=== PATIENT | male | born 1985 | race Caucasian/White ===

== ENCOUNTER 2019-03-03 16:47 | Emergency (ER) | payer OTHER ==
[~2019-03-03] VITALS: Ht 188 cm; Wt 106.8 kg
--- NOTE | 2019-03-03 18:09 | REPVR ---
PROCEDURE INFORMATION: Exam: US Scrotum Exam date and time: 03/03/2019 5:46 PM Clinical history: 33 years old, male; Scrotum pain; Additional info: L testicular pain TECHNIQUE: Imaging protocol: Real-time ultrasound of the scrotum and contents with color Doppler and image documentation. COMPARISON: No relevant prior studies available. FINDINGS: Right testicle: Right testicle measures 4.3 x 2.3 x 3.5 cm. Positive blood flow. No mass. Left testicle: Left testicle measures 4.7 x 2.8 x 3.7 cm. Positive blood flow. No mass. Epididymides: 3 mm right epididymal cyst. Two 3 mm left epididymal cysts. Scrotum: Small right-sided varicocele. Small left sided varicocele. IMPRESSION: Small bilateral varicoceles. Electronically signed by: Kirti Bang On 03/03/2019 18:09:46 PM
[2019-03-03 19:06] VITALS: BP 142/87
--- NOTE | 2019-03-05 14:21 | ED PDOC ---
Post-Departure Follow-Up ft julian fp faxed formal report of scrotal us for fu Shannon Rosado MD Mar 05, 2019 14:21
== END 2019-03-03 19:24 | disposition home or self-care (01) ==
LOC: M ED 16:47
DX: N44.2 Benign cyst of testis (principal)

== ENCOUNTER 2019-09-14 09:29 | Observation (INO) | payer OTHER ==
[~2019-09-14] VITALS: Ht 188 cm; Wt 113.6 kg
[2019-09-14] MEDS ORDERED: CYCLOBENZAPRINE 10MG TABLET PO ONE (10:00)
[2019-09-14] MEDS ORDERED: KETOROLAC 30 MG/ML 1ML VIAL IV ONE (10:00)
--- NOTE | 2019-09-14 10:44 | REP ---
LUMBOSACRAL SPINE SERIES: Five views of lumbosacral spine are performed. No fracture or dislocation is seen. There is no spondylolysis or spondylolisthesis. There is mild disc space narrowing at L3-4 and slight narrowing at L4-5 disc space. There is sclerosis and spurring at the facets of L5-S1. The posterior elements are intact. IMPRESSION: Mild degenerative changes with no fracture or dislocation. Electronically Signed by Taco Gray MD 09/14/2019 11:17 A
[2019-09-14] MEDS ORDERED: PERCOCET 5MG/325MG TAB PO ONE (11:00)
[2019-09-14] MEDS: HYDROMORPHONE HCL 0.5 MG/ 0.5 ML SYRINGE (J1170 PER 1) IV PRN ×2 (13:16→14:53)
--- NOTE | 2019-09-14 14:56 | REPVR ---
PROCEDURE INFORMATION: Exam: MR Lumbar Spine Without Contrast. Exam date and time: 09/14/2019 12:31 PM Age: 33 years old Clinical indication: Low back pain; Additional info: Severe pain TECHNIQUE: Imaging protocol: Multiplanar magnetic resonance images of the lumbar spine without intravenous contrast. COMPARISON: CR Spine. Lumbosacral, complete 09/14/2019 10:01 AM FINDINGS: Vertebrae: The lumbar vertebral bodies are normal in height , signal intensity and alignment.No acute fracture or dislocation is seen. Marrow: There is a normal proportion of hematopoietic bone marrow and fat for this patient's age.There is no evidence of abnormal bone marrow signal intensity to suggest contusion or infection. Spinal epidural space: There is no evidence of epidural masses or hemorrhage. Spinal cord: The conus medullaris is normal. The cauda equina nerve roots demonstrate no crowding or displacement. L1-L2: There is no significant degenerative disc herniation.The spinal canal and neural foramina are patent and without significant stenosis. L2-L3: There is no significant degenerative disc herniation.The spinal canal and neural foramina are patent and without significant stenosis. L3-L4: There is a mild diffuse posterior bulge causing mild effacement of the thecal sac.The facet joints demonstrate mild degenerative hypertrophy and sclerosis.There is no evidence of spinal canal narrowing.There is mild bilateral foraminal stenosis. L4-L5: There is a mild diffuse posterior bulge causing mild effacement of the thecal sac. Small right foraminal protrusion with annular tear.The facet joints demonstrate mild degenerative hypertrophy and sclerosis.There is no evidence of spinal canal narrowing.There is mild bilateral foraminal stenosis. L5-S1: There is a mild diffuse posterior bulge causing mild effacement of the thecal sac. Right paracentral annular tear.The facet joints demonstrate mild degenerative hypertrophy and sclerosis.There is no evidence of spinal canal narrowing.There is no evidence of foraminal stenosis. Soft tissues: The prevertebral soft tissues appear normal. IMPRESSION: MRI of the lumbar spine reveals mild multilevel degenerative spondylitic changes and degenerative disc disease as described above. Electronically signed by: Ric Roe On 09/14/2019 14:56:12 PM
--- NOTE | 2019-09-14 17:41 | HPEPDOC ---
[facility] Medical History & Physical Date of Admission September 14, 2019 Date of Service: September 14, 2019 Attending Physician: PENG REYNOLDS MD History and Physical CHIEF COMPLAINT: Back pain HISTORY OF PRESENT ILLNESS: 33-year-old male with past medical history of disc herniation presents from home with back pain. He was standing in the kitchen yesterday when he suddenly noticed back pain which progressively worsened, unsure how it started, possibly pulled a muscle. Pain was worsening throughout the day, rates it 10 out of 10 upon waking up today. He had difficulty getting up to walk to the bathroom, which is like into the hospital. Pain has been improving throughout the day as he has received muscle relaxers and pain control medications. He ambulated in the ER with a walker but unable to walk without it. He denies any weakness or numbness in his lower extremities, no fecal or urinary incontinence. He has no other associated symptoms. He denies any shortness of breath, chest pain, nausea, vomiting, diarrhea or constipation. 10 point review of system is negative so for above PAST MEDICAL HISTORY: 1. Disc herniation. PAST SURGICAL HISTORY: 1. 3 left knee surgeries. 2. Hernia repair. SOCIAL HISTORY: Denies smoking. Social alcohol use. Denies drug use FAMILY HISTORY: Mother had breast cancer ALLERGIES: Please see below. HOME MEDICATIONS: Please see below. PHYSICAL EXAMINATION: VITAL SIGNS: Please see below. GENERAL: No distress HEENT: Normocephalic, atraumatic, moist mucous membranes NECK: Supple CARDIOVASCULAR EXAMINATION: S1, S2, no murmurs RESPIRATORY EXAMINATION: Clear to auscultation, no wheezing ABDOMINAL EXAMINATION: Soft, nontender, nondistended, positive bowel sounds EXTREMITIES: Range of motion intact SKIN: No rash NEUROLOGICAL EXAMINATION: Alert and oriented 3, no focal deficits PSYCHIATRIC EXAMINATION: Calm and cooperative LABORATORY DATA: See below. IMAGING: MRI of lumbar spine showing degenerative disc disease, no acute pathology MICROBIOLOGY: Please see below. ASSESSMENT: 33-year-old male with no significant past medical history, being admitted for intractable back pain with inability to walk because of. PLAN: 1. Acute back pain. Likely musculoskeletal, MRI without acute pathology, degenerative disc disease noted, PT/OT, pain control, Flexeril as needed. Plan for discharge tomorrow if improving. Vital Signs Vital Signs Date Time Temp Pulse Resp B/P (MAP) Pulse Ox O2 Delivery O2 Flow Rate FiO2 09/14/19 16:21 74 18 94 Room Air 09/14/19 16:20 143/67 (92) 09/14/19 09:39 97.7 Laboratory Data Labs 24H Laboratory Tests 2 09/14/19 10:01: POC Glucose (Misc Panel) 110H, POC Sodium (Misc Panel) 141, POC Potassium (Misc Panel) 4.5, POC Chloride (Misc Panel) 101, POC Total CO2 (Misc Panel) 27.0, POC Blood Urea Nitrogen (Misc Panel 19, POC Ionized Calcium (Misc Panel) 5.0, POC Creatinine (Misc Panel) 1.1, POC Hematocrit (Misc Panel) 49.0 Home Medications No Active Prescriptions or Reported Meds Allergies Coded Allergies: No Known Allergies (Unverified , 03/03/19) A-FIB/CHADSVASC A-FIB History Current/History of A-Fib/PAF?: No PENG REYNOLDS MD September 14, 2019 17:41
[2019-09-14] MEDS: KETOROLAC 30 MG/ML 1ML VIAL IV PRN (18:49)
[2019-09-14] MEDS: PERCOCET 5MG/325MG TAB PO PRN (21:26)
[2019-09-14 22:00] VITALS: BP 130/84
[2019-09-14] MEDS: CYCLOBENZAPRINE 5MG TABLET PO PRN (22:40)
[2019-09-15 06:00] VITALS: BP 127/78
[2019-09-15] MEDS: PERCOCET 5MG/325MG TAB PO PRN ×3 (06:28→16:15)
[2019-09-15 06:29] LABS: HEMATOCRIT 49.5 % (42.0-52.0); MEAN CORPUSCULAR HEMOGLOBIN 30.5 pg (27.0-33.0); MEAN CORPUSCULAR HGB CONC 34.3 g/dl (32.0-36.5); MEAN CORPUSCULAR VOLUME 88.9 fl (80.0-96.0); PLATELET COUNT, AUTOMATED 170 10^3/uL (150-450); RED BLOOD COUNT 5.57 10^6/uL (4.30-6.10); WHITE BLOOD COUNT 6.6 10^3/uL (4.0-10.0)
[2019-09-15] MEDS: KETOROLAC 30 MG/ML 1ML VIAL IV PRN ×2 (06:57→13:43)
[2019-09-15 06:58] LABS: ALBUMIN 3.8 GM/DL (3.2-5.2); ALT/SGPT 61 U/L (12-78); BILIRUBIN,TOTAL 1.2 MG/DL (0.2-1.0); BLOOD UREA NITROGEN 21 MG/DL (7-18); CALCIUM LEVEL 8.7 MG/DL (8.5-10.1); CARBON DIOXIDE LEVEL 30 MEQ/L (21-32); CHLORIDE LEVEL 105 MEQ/L (98-107); CPK CREATINE PHOSPHOKINASE 179 U/L (39-308); CREATININE FOR GFR 1.31 MG/DL (0.70-1.30); GLOMERULAR FILTRATION RATE > 60.0 (>60); GLUCOSE, FASTING 85 MG/DL (70-100); MAGNESIUM LEVEL 2.2 MG/DL (1.8-2.4); POTASSIUM SERUM 4.6 MEQ/L (3.5-5.1); SODIUM LEVEL 141 MEQ/L (136-145); TOTAL PROTEIN 6.9 GM/DL (6.4-8.2)
[2019-09-15] MEDS: CYCLOBENZAPRINE 5MG TABLET PO PRN (09:07)
[2019-09-15 13:47] VITALS: BP 156/58
[2019-09-15] MEDS ORDERED: CYCL5TAB PO (16:41)
[2019-09-15] MEDS ORDERED: PERCOCET PO (16:41)
--- NOTE | 2019-09-15 18:03 | DS.PDOC ---
Discharge Summary General Date of Admission September 14, 2019 at 09:30 Date of Discharge 09/15/19 Attending Physician: PENG REYNOLDS MD Discharge Summary PROCEDURES PERFORMED DURING STAY: [None]. ADMITTING DIAGNOSES: 1. Intractable Back Pain DISCHARGE DIAGNOSES: 1. Acute Lower Back Pain COMPLICATIONS/CHIEF COMPLAINT: Intractable Back [place]. HISTORY OF PRESENT ILLNESS: Patient is a 33 year old male with a past medical history significant for lumbar disc buldge/herniation who presented to [facility] with complaint of acute onset lower back pain. Patient stated that he was standing in his kitchen when he noticed sudden onset lower back pain that progressively worsened. He stated that it had worsened throughout the day and was rated as a 10/10 and sharp and burning. He had difficulty with ambulation and was unable to walk due to the pain. He denies any fecal or urinary incontinence. He denied any weakness of numbness in his lower extremities. The patient was subsequently admitted to [facility] for further evaluation and management HOSPITAL COURSE: Once admitted the patient was treated with muscle relaxers and oral pain medications. He received oral Percocet, IV Toradol, and PO Flexeril for pain. The patient noticed improvement over the second day of his hospitalization. MRI of the lumbar spine was completed which demonstrated mild multilevel degenerative spondylitic changes and degenerative disc disease (report below). Patient continued to worked with physical therapy who found him safe for discharge home. Recommendations were made for discharge with a 4 wheel walker and continued outpatient physical therapy. Patient was subsequently discharged with plans for outpatient physical therapy and follow-up with his PCP. He was given Percocet 10-325 q6hprn for pain and Flexeril prn. DISCHARGE MEDICATIONS: Please see below. ALLERGIES: Please see below. PHYSICAL EXAMINATION ON DISCHARGE: VITAL SIGNS: Please see below. GENERAL: Awake, alert, and oriented. Sitting up comfortably in bed. Appears in no acute distress HEENT: Atraumatic, normocephalic. Eyes are nonicteric. Trachea is midline NECK: No palpable cervical, axillary, or supraclavicular lymphadenopathy CARDIOVASCULAR EXAMINATION: Normal S1, S2. Regular rate and rhythm. no clicks, rubs or murmurs RESPIRATORY EXAMINATION: Normal S1, S2. Regular rate and rhythm. No clicks rubs or murmurs ABDOMINAL EXAMINATION: Soft, nondistended. Nontender. Normoactive bowel sounds throughout MUSCULOSKELETAL: No midline tenderness. Decrease in flexion/extension in active range of motion due to reported pain. Intact sensation in bilateral lower extremities EXTREMITIES: No edema. Full and equal pulses in bilateral upper and lower extremities SKIN: No rashes or lesions NEUROLOGICAL EXAMINATION: No focal neurological deficits PSYCHIATRIC EXAMINATION: Mood and affect appear appropriate LABORATORY DATA: Please see below. IMAGING: LUMBOSACRAL SPINE SERIES: Five views of lumbosacral spine are performed. No fracture or dislocation is seen. There is no spondylolysis or spondylolisthesis. There is mild disc space narrowing at L3-4 and slight narrowing at L4-5 disc space. There is sclerosis and spurring at the facets of L5-S1. The posterior elements are intact. IMPRESSION: Mild degenerative changes with no fracture or dislocation. Electronically Signed by Taco Gray MD 09/14/2019 11:17 A PROCEDURE INFORMATION: Exam: MR Lumbar Spine Without Contrast. Exam date and time: 09/14/2019 12:31 PM Age: 33 years old Clinical indication: Low back pain; Additional info: Severe pain TECHNIQUE: Imaging protocol: Multiplanar magnetic resonance images of the lumbar spine without intravenous contrast. COMPARISON: CR Spine. Lumbosacral, complete 09/14/2019 10:01 AM FINDINGS: Vertebrae: The lumbar vertebral bodies are normal in height , signal intensity and alignment.No acute fracture or dislocation is seen. Marrow: There is a normal proportion of hematopoietic bone marrow and fat for this patient's age.There is no evidence of abnormal bone marrow signal intensity to suggest contusion or infection. Spinal epidural space: There is no evidence of epidural masses or hemorrhage. Spinal cord: The conus medullaris is normal. The cauda equina nerve roots demonstrate no crowding or displacement. L1-L2: There is no significant degenerative disc herniation.The spinal canal and neural foramina are patent and without significant stenosis. L2-L3: There is no significant degenerative disc herniation.The spinal canal and neural foramina are patent and without significant stenosis. L3-L4: There is a mild diffuse posterior bulge causing mild effacement of the thecal sac.The facet joints demonstrate mild degenerative hypertrophy and sclerosis.There is no evidence of spinal canal narrowing.There is mild bilateral foraminal stenosis. L4-L5: There is a mild diffuse posterior bulge causing mild effacement of the thecal sac. Small right foraminal protrusion with annular tear.The facet joints demonstrate mild degenerative hypertrophy and sclerosis.There is no evidence of spinal canal narrowing.There is mild bilateral foraminal stenosis. L5-S1: There is a mild diffuse posterior bulge causing mild effacement of the thecal sac. Right paracentral annular tear.The facet joints demonstrate mild degenerative hypertrophy and sclerosis.There is no evidence of spinal canal narrowing.There is no evidence of foraminal stenosis. Soft tissues: The prevertebral soft tissues appear normal. IMPRESSION: MRI of the lumbar spine reveals mild multilevel degenerative spondylitic changes and degenerative disc disease as described above. Electronically signed by: Ric Roe On 09/14/2019 14:56:12 PM PROGNOSIS: GOOD ACTIVITY: [As tolerated]. DIET: As Tolerated DISCHARGE PLAN: Patient to be discharged home with 4 wheel walker. Patient to continue outpatient physical therapy. Continue Percocet and Flexeril as needed for pain. Follow-up with PCP in 1-2 weeks DISCHARGE CONDITION: [Stable]. TIME SPENT ON DISCHARGE: Greater than 40 minutes. Attending attestation: I evaluated and examined the patient in person; I discussed the care with Resident in detail and agree with the plan above. Vital Signs/I&Os Vital Signs Date Time Temp Pulse Resp B/P (MAP) Pulse Ox O2 Delivery O2 Flow Rate FiO2 09/15/19 16:15 17 09/15/19 13:47 100.0 68 156/58 (90) 96 Room Air I&O- Last 24 Hours up to 6 AM 09/15/19 06:00 Intake Total 1120 ml Output Total 500 ml Balance 620 ml Laboratory Data Labs 24H Laboratory Tests 2 09/15/19 06:11: Nucleated Red Blood Cells % (auto) 0.0, Anion Gap 6L, Glomerular Filtration Rate > 60.0, Calcium Level 8.7, Magnesium Level 2.2, Total Bilirubin 1.2H, Aspartate Amino Transf (AST/SGOT) 25, Alanine Aminotransferase (ALT/SGPT) 61, Alkaline Phosphatase 60, Total Creatine Kinase 179, Total Protein 6.9, Albumin 3.8, Albumin/Globulin Ratio 1.2 CBC/BMP Laboratory Tests 09/15/19 06:11 Discharge Medications Scheduled PRN Cyclobenzaprine HCl (Cyclobenzaprine HCl) 5 Mg Tablet, 5 MG PO Q8HP PRN for back pain Oxycodone/Acetaminophen (Oxycodone-Acetaminophen 5-325) 1 Each Tablet, 2 TAB PO Q6HP PRN for SEVERE PAIN (PS 8-10) Allergies Coded Allergies: No Known Allergies (Unverified , 03/03/19) GISELLE ACUÑA DO Sep 15, 2019 18:02 PENG REYNOLDS MD Sep 18, 2019 23:37
== END 2019-09-15 17:46 | disposition home or self-care (01) ==
LOC: M ED 09:29 → EDBD 09:29 → M ED INP 09:30 → ENRESERVDT 16:52 → ENRESERVTM 16:52 → M MSPAV 17:10
PROVIDERS: ADMIT Internal Medicine; ATTEND Internal Medicine
DX: M54.5 Low back pain (principal); M47.816 Spondylosis without myelopathy or radiculopathy, lumbar region; M51.36 Other intervertebral disc degeneration, lumbar region; R26.89 Other abnormalities of gait and mobility
CPT/HCPCS: 36415; 72110; 72148; 80047; 80053; 82550; 83735; 85027; 96374; 96375; 96376; 97161; 99285; J1170; J1885